=== PATIENT | female | born 1960 | race Caucasian/White ===

== ENCOUNTER → 2018-02-07 11:50 | Outpatient (CLI) | payer OTHER, SELFPAY ==
[2018-02-07 14:40] LABS: Estradiol 33.5 pg/mL
[2018-02-14 11:42] LABS: HPV Reflexed? NOT INDICATED
== END ==
PROVIDERS: Visit Provider Obstetrics & Gynecology
DX: Z12.4 Encounter for screening for malignant neoplasm of cervix (principal); Z79.890 Hormone replacement therapy
CPT/HCPCS: 36415; 82670; 88175; G0145

== ENCOUNTER → 2020-03-11 | Outpatient (CLI) | payer OTHER, SELFPAY ==
--- NOTE | 2020-03-11 07:41 | BI_ITS ---
MAMMOGRAPHY - BILATERAL SCREENING REASON FOR EXAM: Female, 59 years old. Routine annual screening examination. PERTINENT HISTORY: Non-contributory. TECHNIQUE: Digital bilateral breast alexis (3D mammographic acquisition) in the CC and MLO projections. 2-D mediolateral oblique (MLO) and craniocaudad (CC) views of both breasts were obtained. CAD: Full Field Digital Mammography with Computer Added Detection was performed. COMPARISON: Comparison is made with prior examination dated 02/02/2012. FINDINGS: Breast Composition: There are scattered areas of fibroglandular density. There are no dominant masses or suspicious calcifications. No other significant abnormalities are identified. There has been no significant change since the prior study. BI/SCREEN MAMM (CAD) W/ALEXIS BILAT IMPRESSION: Stable bilateral screening mammogram. Yearly follow-up mammogram recommended. (A) ASSESSMENT CATEGORY: BIRADS Category 1: Negative. A letter regarding these results will be sent to the patient by the facility within 30 days. Approximately 10% of breast cancers are not detected by mammography. A normal mammogram should not delay biopsy of a clinically suspicious abnormality. [id number] Electronically Signed: Deric Soliz, at 8:43 EDT , Service support ,
== END | disposition home or self-care (01) ==
PROVIDERS: Referring Provider Obstetrics & Gynecology; Visit Provider Obstetrics & Gynecology
DX: Z12.31 Encounter for screening mammogram for malignant neoplasm of breast (principal)
CPT/HCPCS: 77063; 77067

== ENCOUNTER → 2020-10-09 07:53 | Outpatient (CLI) | payer OTHER, SELFPAY ==
[2020-10-09 10:50] LABS: ALB/GLOB Ratio 0.9 RATIO (0.9-2.4); AST(SGOT) 14 U/L (15-37); Alanine Aminotransfer ALT/SGPT 20 U/L (13-56); Albumin, Serum 3.7 g/dL (3.2-5.0); Alkaline Phosphatase 79 U/L (45-117); Anion Gap 4 (5-15); BUN 10 mg/dL (7-18); BUN/Creat Ratio 13.3 RATIO (10-20); Chloride 107 mmol/L (98-107); Cholesterol 186 mg/dL (200); Creatinine, Serum 0.75 mg/dL (0.55-1.02); EST Glomerular Filtration Rate 83 mL/min (>60); Est Glom Filt Rate - Afr Amer 100 mL/min (>60); Globulin 4.3 g/dL (2.2-4.2); Glucose 77 mg/dL (74-106); High Density Lipoprotein 52 mg/dL; Sodium Level 140 mmol/L (136-145); Triglycerides 94 mg/dL; Very Low Density Lipoprotein 19 mg/dL (5-40)
== END ==
PROVIDERS: PCP Family Medicine; Referring Provider Family Medicine; Visit Provider Family Medicine
DX: Z13.1 Encounter for screening for diabetes mellitus (principal); Z13.220 Encounter for screening for lipoid disorders
CPT/HCPCS: 36415; 80053; 80061

== ENCOUNTER → 2022-03-01 | Outpatient (CLI) | payer OTHER, SELFPAY ==
--- NOTE | 2022-03-01 16:56 | RAD_ITS ---
STUDY: X-RAY - LEFT KNEE REASON FOR EXAM: Female, 61 years old. Posterior left knee pain TECHNIQUE: 4 view(s) of the knee. COMPARISON: None. FINDINGS: Normal visualized distal femur. Normal visualized proximal tibia and fibula. Normal proximal tibiofibular articulation. Normal patella. Moderate degenerative change of the medial compartment of the knee.. Normal lateral femorotibial compartment. Mild degenerative change of the patellofemoral compartment. No knee joint effusion. The soft tissue structures are unremarkable. 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 Electronically Signed: Rupert Murry MD at 2:50 EDT ,
== END | disposition home or self-care (01) ==
PROVIDERS: PCP Family Medicine; Referring Provider Family Medicine; Visit Provider Family Medicine
DX: M25.562 Pain in left knee (principal)
CPT/HCPCS: 73564

== ENCOUNTER → 2025-01-14 | Outpatient (CLI) | payer OTHER, SELFPAY ==
--- NOTE | 2025-01-14 07:04 | BI_ITS ---
EXAM: SCRN MAMM (CAD)W/ALEXIS BILAT DATE: 01/14/2025 CLINICAL HISTORY: F, Age 64 y/o , SCREENING TECHNIQUE: SCRN MAMM (CAD)W/ALEXIS BILAT COMPARISON: Prior exam(s) were compared FINDINGS: TISSUE DENSITY: The breasts are heterogeneously dense, which may obscure small masses. Bilateral Breast Mammographic Findings: No suspicious masses, calcifications or other abnormalities are identified. BI/SCRN MAMM (CAD)W/ALEXIS BILAT IMPRESSION: No mammographic evidence of malignancy in either breast OVERALL FINAL ASSESSMENT BI-RADS 1: NEGATIVE. RECOMMENDATION: Routine annual follow-up in 1 Year A letter with findings and recommendations will be mailed to the patient. Reading Location: [id number]
--- OUTSIDE RECORDS SUMMARY | 2025-01-14 07:05 | XMS RPT_ITS | CCD ---
Author Organization [facility] Inform ion Partnership CONSTRUCTION PROJECT ADMINISTRATOR [facility] Care Team Providers Care Biometrics Head Name Role Phone Unavailable Primary Care Provider Unavailabl e HAZEL GRAY Attending Unavail able Hazel Lui Referring Unavail able Hazel Lui Attending Unavail able Care Physician, No Primary Primary Care Unava ilable Allergies Allergy Classification Reported Allergen(s) Allergy Type Date of Onset Reaction(s) Facility (5 sources) Codeine; Translations: [CODEINE] Drug Allergy 03-16-2007 [facility] Work Phone: Medications Current Medications Medication Drug Class(es) Dates Sig (Normalized) Sig (Original) 168 hr estradiol 0.21271 mg/hr transdermal system (6 sources) Estrogen Start: 06-28-2023 End: 08-29-2025 estradiol (CLIMARA) 0.025 mg/24 hr patch Apply 1 Patch as directed one time a week. 12 Patch 3 08/29/2024 08/29/2025 Active Completed/Discontinued Medications Medication Drug Class(es) Dates Sig (Normalized) Sig (Original) fluorouracil 50 mg/ml topical cream (2 sources) Nucleoside Metabolic Inhibitor Start: 06-14-2007 End: 08-05-2024 FLUOROURACIL 5 % TOPICAL CREAM bid 15 days to cm past lesion area L upper cheek--retain remainder--delay start to 07/03 45 gm 0 06/14/2007 08/05/2024 Discontinued Problems Problem Classification Problem Date Documented Da te Episodic/Chronic Other screening for suspected conditions (not mental disorders or infectious disease) (1 source) Encounter for screening mammogram for malignant neoplasm of breast; Translations: [Encounter for screening mammogram for malignant neoplasm of breast] Onset: 01-10-2025 Episodic Results Test Name Value Interpretation Reference Range Facil ity CNPNon 01-02-2025 CNPN Telephone (OBGYWM) BETTINA SÁNCHEZ ([id number]) 1960 F Date Time Provider Department 01/02/25 HAZEL GRAY OBGYWM During your visit today, we recorded the following information about you: Opal Merchant LPN 01/02/2025 1:31 PM Signed Patient is currently using the Climara patch and called stating that her daughter recently had genetic testing completed that showed 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 Patient asking if ok to continue using the Climara patch. Patient did schedule an appointment to discuss on 01/15/25 if needed. Please advise. Hazel Gray MD 01/03/2025 9:38 AM Signed What is the diagnosis? Typically it is fine- she is using patch which also decreases risk but the amount estrogen is less than what ovaries produced before menopause. Kathy Johnson RN 01/03/2025 10:24 AM Signed Patient notified. It is Factor V Leiden. Does that change anything? Does she need the 01/15 appt with you to discuss? ALMA DELIA Villarreal Deidre, MD 01/03/2025 12:24 PM Signed I am happy to have a discussion with her but she has been on HRT for years- there is a slight increased risk for DVT/clot with women who have Factor V mutation and are on HRT vs women who do not have mutation. Transdermal approach decreases that risk. It is all about risk/benefits. This will be a personal choice for her. Kathy Johnson RN 01/03/2025 12:46 PM Signed Patient notified. She wants to keep appt as schedule to discuss further. Kathy Giauque, RN Allergies As of Date: 01/02/2025 Noted Allergy Reaction CODEINE 03/16/2007 Date Reviewed: 08/05/2024 Reviewed by: Dania Kelly MA - Fully Assessed Reason for Visit: Patient Question [1477] Prescriptions as of 01/03/2025 - estradiol (CLIMARA) 0.025 mg/24 hr patch Apply 1 Patch as directed one time a week. Problem List As Of Date: 01/02/2025 (None) Encounter Status:Closed by KATHY JOHNSON on 01/03/25 Normal [facility] CNOVon 08-05-2024 CNOV Office Visit (OBGYWM ) BETTINA SÁNCHEZ ([id number]) 1960 F Date Time Provider Department 08/05/24 11:20 AM HAZEL GRAY OBGYWM During your visit today, we recorded the following information about you: Blood pressure Weight Height 134/76 83 kg 1.702 m Hazel Gray MD 08/05/2024 12:09 PM Signed [employer] Supervisor offered: Patient declines. Bettina is a 63 year old who presents for an annual gynecologic exam without complaints. Postmenopausal: Yes HRT use: Yes, CLIMARA How long: YEARS. Last pap smear: NORMAL PER PATIENT History of abnormal pap: No Last mammogram: 2022 normal History of abnormal mammogram: No Sexually active: Yes Pain with intercourse: No Postcoital bleeding: No Hot flashes: No Vaginal dryness: No OB History Gravida4 Para4 Term0 Preterm0 AB0 Living4 SAB0 IAB0 Ectopic0 Multiple0 Live Births0 Design Draftsman History LMP: Hysterectomy Age at Menarche: Age at First : Age at Menopause: Design Draftsman History Comments: Sexual Activity: Yes; Male Contraception: No contraception data on record History reviewed. No pertinent past medical history. PAST SURGICAL HISTORY Procedure Laterality Date PAST SURGICAL HISTORY OF 06/26/2006 lymph node infected TOTAL ABDOM HYSTERECTOMY FAMILY HISTORY Problem Relation Age of Onset None Mother Hypertension Father SOCIAL HISTORY Social History Tobacco Use Smoking status: Never Smokeless tobacco: Never Vaping Use Vaping status: Never Used Substance Use Topics Alcohol use: No Drug use: Never REVIEW OF SYSTEMS Abdomen: No abdominal pain, nausea, vomiting, diarrhea, or constipation. No bloating, early satiety, indigestion, or increased flatulence. Bladder: No dysuria, gross hematuria, urinary frequency, urinary urgency, or incontinence Breast: No breast lumps, nipple d/c, overlying skin changes, redness or skin retraction Allergies and current medication updated:Yes SENSITIVE EXAM: The sensitive examination was discussed with the Patient or Patient's Authorized Crime Scene Photographer. As applicable, any other physician, advance practice provider, medical student, or other health professional student that will be observing or involved in the sensitive examination for educational or training purposes was discussed with the Patient or Authorized Crime Scene Photographer. The Patient or Authorized Crime Scene Photographer has agreed to proceed with the sensitive examination. (Sensitive examination includes inspection and/or palpation of the breasts, pelvis, prostate and anorectal regions). EXAM: BP 148/86 Ht 5' 7" (1.70m) Wt 183 lb (83.0kg) BMI 28.66 kg/(m2). GENERAL: pleasant, female in no apparent distress HEENT: Normocephalic, atraumatic, mucus membranes moist, and no lesions NECK: Supple, full range of motion, no adenopathy, and thyroid normal DERMATOLOGY: Normal, without lesions, non-icteric, and non-hirsute BREAST: soft, non-tender, symmetric, no dominant mass, normal nipple-areolar complex, no lymphadenopathy, and no nipple discharge CHEST: Normal inspiratory effort ABDOMEN: soft, non-tender, and no masses PELVIC: external genitalia normal, normal Bartholin's glands, urethra, Kittredge's glands, no vulvar lesions, good vaginal support, physiologic discharge present, normal appearing perineal body and perianal region, cervix surgically absent BIMANUAL: no adnexal masses, non-tender, and uterus surgically absent RECTOVAGINAL: deferred. NEURO: alert and oriented x3,exam grossly non-focal EXTREMITIES: normal ASSESSMENT/PLAN: 1) Health maintenance: Pap/HPV screening no longer needed Mammogram ordered Nutrition, exercise and routine health maintenance exams reviewed. Calcium/Vitamin D supplementation information provided. Colon cancer screening: PT declines colonoscopy and cologuard BMD: pt declines 2) Follow up one year or sooner as needed aHzel Lui MD Allergies As of Date: 08/05/2024 Noted Allergy Reaction CODEINE 03/16/2007 Date Reviewed: 08/05/2024 Reviewed by: Dania Kelly MA - Fully Assessed Reason for Visit: Yearly Exam [187] Primary Visit Diagnosis:Encounter for gynecological examination (general) (routine) without abnormal findings [Z01.419] Prescriptions as of 08/05/2024 - estradiol (CLIMARA) 0.025 mg/24 hr patch Apply 1 Patch as directed one time a week. Problem List As Of Date: 08/05/2024 (None) Medications Discontinued During This Encounter Prescriptions - FLUOROURACIL 5 % TOPICAL CREAM (Discontinued) Reported on 08/05/2024 Disposition: Return in 1 year (on 08/05/2025) for Annual Exam. Follow-up and Disposition History for Encounter Date Provider Department Center 08/05/2024 [id number]-ESDUTCE MCINTOSH,*KARINA Magana Encounter Status:Closed by HAZEL WARD on 08/05/24 Normal [facility] Vital Signs Date Time Vital Sign Value Performing Clinician Faci ayaka 08-05-2024 11:20-0500 Body height 170.2 cm Hazel Ward MD Work Phone: [facility] 08-05-2024 11:20-0500 Body mass index (BMI) [Ratio] 28.66 kg/m2 Hazel Ward MD Work Phone: [facility] 08-05-2024 11:20-0500 Body weight 83.01 kg Hazel Ward MD Work Phone: [facility] 08-05-2024 11:20-0500 Diastolic blood pressure 76 mm[Hg] Hazel Ward MD Work Phone: [facility] 08-05-2024 11:20-0500 Systolic blood pressure 134 mm[Hg] Hazel Ward MD Work Phone: [facility] Encounters Encounter Date Encounter Type Care Provider Facility Start: 01-14-2025 ambulatory Hazel Lui Facility:[facility] Start: 01-02-2025 End: 01-03-2025 Telephone encounter Hazel Ward MD Work Phone: OB/Gynecology Comment on above: Patient Question Start: 08-29-2024 End: 08-29-2024 Refill Hazel Ward MD Work Phone: OB/Gynecology Comment on above: Refill Request Start: 08-05-2024 End: 08-05-2024 ambulatory HAZEL WARD Facility:[facility] Start: 08-05-2024 End: 08-05-2024 Patient encounter procedure Hazel Ward MD Work Phone: OB/Gynecology Comment on above: Encounter for gyneco logical examination (general) (routine) without abnormal findings (Primary Dx) Start: 08-05-2024 End: 08-05-2024 Patient encounter status Hazel Ward MD Work Phone: [facility] Start: 07-05-2024 End: 07-05-2024 Refill Hazel Ward MD Work Phone: OB/Gynecology Comment on above: Refill Request Start: 03-01-2022 End: 03-01-2022 ambulatory [facility] Work Phone: Start: 03-01-2022 End: 03-01-2022 Patient encounter procedure [facility] [place] Procedures Date Procedure Procedure Detail Performing Clinician Start: 03-01-2022 Radiologic examinati on of knee Plan of Treatment Date Care Activity Detail Author Start: 2033 RSV Vaccine (1 - 1-d ose 75+ series) RSV Vaccine (1 - 1-dose 75+ series) [facility] Start: 08-06-2025 End: 08-06-2025 Patient encounter procedure 08/06/2025 1:20 PM EST Office Visit OB/Gynecology [address] [place] [address] Hazel Gray MD [address] [place] [address] Annual OB/Gynecology Comment on above: Annual Start: 02-24-2025 Influenza vaccination Influenza Vacc ine (#1) [facility] Start: 01-15-2025 End: 01-15-2025 Patient encounter procedure 01/15/2025 9:40 AM EDT Office Visit OB/Gynecology [address] [place] [address] Hazel Gray MD [address] [place] [address] discuss medication issue okay per Christy Nurse OB/Gynecology Comment on above: discuss medication i ssue okay per Christy Nurse Start: 08-05-2024 End: 08-05-2024 Patient encounter procedure 08/05/2024 11:20 AM EST Office Visit OB/Gynecology [address] [place] [address] Hazel Gray MD [address] [place] [address] ANNUAL OB/Gynecology Comment on above: ANNUAL Start: 06-26-2024 Advance Directive Discussion Advance Directive Discussion [facility] Start: 02-25-2024 Covid-19 Vaccine ( season) Covid-19 Vaccine ( season) [facility] Start: 02-25-2024 Influenza vaccination Influenza Vacc ine (#1) [facility] Start: 10-17-2023 Screening for osteoporosis Bone Density Screening [facility] Start: 2008 Pneumococcal Vaccine : 50+ (1 of 1 - PCV) Pneumococcal Vaccine: 50+ (1 of 1 - PCV) [facility] Start: 2008 Shingrix Vaccine (1 of 2) Shingrix V accine (1 of 2) [facility] Start: 09-09-2005 Urine microalbumin profile DTaP,Tdap,Td Vaccine (1 - Tdap) [facility] Start: 10-17-2003 Diabetes Screening Diabetes Screenin g [facility] Start: 10-17-2003 Lipid panel Lipid Screening [facility] Start: 10-17-2003 Screening for malign ant neoplasm of colon [facility] Start: 1998 Screening for malign ant neoplasm of breast Mammogram Screening [facility] Start: 1976 Anxiety Screening Anxiety Screening [facility] Start: 1976 Depression Screening Depression Scre ening [facility] Start: 1976 Hepatitis C screening Hepatitis C Sc reening [facility] Start: 1976 HIV screening HIV Screening [facility] Immunizations Immunization Date Immunization Notes Care Provider Woo monteiro 04-14-2014 influenza virus vacc ine, unspecified formulation Hazel Ward MD Work Phone: [facility] Payers Date Payer Category Payer Self-pay [id number] 2019 Private Health Insurance MMO SU[employer] PPO [id number] 2019 Unknown MMO MMO [employer] PPO [id number] 2019-Present [phone] [address] [place] [address] PPO [id number] 2019 Unknown [id number] Unknown [id number] Social History Date Type Detail [facility] Work Phone: Start: 1960 Sex Assigned At Female W [facility] Work Phone: Start: 06-28-2023 [facility] tobacco [facility] Start: 06-28-2023 Tobacco use and exposure Smokeless tobacco non-user [facility] Start: 06-28-2023 End: 08-05-2024 Alcoholic beverage intake Current non-drinker of alcohol (finding) [facility] Start: 06-28-2023 End: 08-05-2024 History of Social function [facility] Start: 06-28-2023 End: 08-05-2024 Tobacco use panel [facility] National Score (1-10 0), lower number is lower risk 76 [facility] Start: 1960 Sex assigned at Not on file [facility] Clinical Notes 07-05-2024 to 01-03-2025 Telephone Encounter - Kathy Johnson RN - 01/03/2025 12:46 PM EDTTelephone Encounter - Kathy Johnson RN - 01/03/2025 12:46 PM EDTTelephone Encounter - Lisbeth Tineo RN - 08/29/2024 11:55 AM EST Note Date & Type Note Facility 01-03-2025 Telephone encounter Note Patient notified. She wants to keep appt as schedule to discuss further. Kathy Johnson RN [facility] 01-03-2025 Miscellaneous Notes Patient notified. She wants to keep appt as schedule to discuss further. Kathy Johnson RN I am happy to have a discussion with her but she has been on HRT for years- there is a slight increased risk for DVT/clot with women who have Factor V mutation and are on HRT vs women who do not have mutation. Transdermal approach decreases that risk. It is all about risk/benefits. This will be a personal choice for her. Patient notified. It is Factor V Leiden. Does that change anything? Does she need the 01/15 appt with you to discuss? Kathy Johnson RN What is the diagnosis? Typically it is fine- she is using patch which also decreases risk but the amount estrogen is less than what ovaries produced before menopause. 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 Patient asking if ok to continue using the Climara patch. Patient did schedule an appointment to discuss on 01/15/25 if needed. Please advise. documented in this encounter [facility] 01-03-2025 Telephone encounter Note I am happy to have a discussion with her but she has been on HRT for years- there is a slight increased risk for DVT/clot with women who have Factor V mutation and are on HRT vs women who do not have mutation. Transdermal approach decreases that risk. It is all about risk/benefits. This will be a personal choice for her. [facility] 01-03-2025 Telephone encounter Note Patient notified. It is Factor V Leiden. Does that change anything? Does she need the 01/15 appt with you to discuss? Kathy Johnson RN [facility] 01-03-2025 Telephone encounter Note What is the diagnosis? Typically it is fine- she is using patch which also decreases risk but the amount estrogen is less than what ovaries produced before menopause. 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 Patient asking if ok to continue using the Climara patch. Patient did schedule an appointment to discuss on 01/15/25 if needed. Please advise. [facility] 08-29-2024 Telephone encounter Note Last OV 08/05/24. Pt states Rx now needs sent to mail order for 90 day supply. Advised DM out this afternoon and returns tomorrow AM. Requested Prescriptions Pending Prescriptions Disp Refills estradiol (CLIMARA) 0.025 mg/24 hr patch 12 Patch 3 Sig: Apply 1 Patch as directed one time a week. Lisbeth Tineo RN [facility] 08-29-2024 Miscellaneous Notes Last OV 08/05/24. Pt states Rx now needs sent to mail order for 90 day supply. Advised DM out this afternoon and returns tomorrow AM. Requested Prescriptions Pending Prescriptions Disp Refills estradiol (CLIMARA) 0.025 mg/24 hr patch 12 Patch 3 Sig: Apply 1 Patch as directed one time a week. Lisbeth Tineo RN documented in this encounter [facility] 08-05-2024 Note HNO ID: [id number] Author: HAZEL GRAY MD Service: ? Author Type: Physician Type: Progress Notes Filed: 08/05/2024 12:09 Note Text: [employer] Supervisor offered: Patient declinesKarolina Doyle is a 63 year old who presents for an annual gynecologic exam without complaints. Postmenopausal: Yes HRT use: Yes, CLIMARA How long: YEARS. Last pap smear: NORMAL PER PATIENT History of abnormal pap: No Last mammogram: 2022 normal History of abnormal mammogram: No Sexually active: Yes Pain with intercourse: No Postcoital bleeding: No Hot flashes: No Vaginal dryness: No OB History Gravida4 Para4 Term0 Preterm0 AB0 Living4 SAB0 IAB0 Ectopic0 Multiple0 Live Births0 Design Draftsman History LMP: Hysterectomy Age at Menarche: Age at First : Age at Menopause: Design Draftsman History Comments: Sexual Activity: Yes; Male Contraception: No contraception data on record History reviewed. No pertinent past medical history. PAST SURGICAL HISTORY Procedure Laterality Date PAST SURGICAL HISTORY OF 06/26/2006 lymph node infected TOTAL ABDOM HYSTERECTOMY FAMILY HISTORY Problem Relation Age of Onset None Mother Hypertension Father SOCIAL HISTORY Social History Tobacco Use Smoking status: Never Smokeless tobacco: Never Vaping Use Vaping status: Never Used Substance Use Topics Alcohol use: No Drug use: Never REVIEW OF SYSTEMS Abdomen: No abdominal pain, nausea, vomiting, diarrhea, or constipation. No bloating, early satiety, indigestion, or increased flatulence. Bladder: No dysuria, gross hematuria, urinary frequency, urinary urgency, or incontinence Breast: No breast lumps, nipple d/c, overlying skin changes, redness or skin retraction Allergies and current medication updated:Yes SENSITIVE EXAM: The sensitive examination was discussed with the Patient or Patient's Authorized Crime Scene Photographer. As applicable, any other physician, advance practice provider, medical student, or other health professional student that will be observing or involved in the sensitive examination for educational or training purposes was discussed with the Patient or Authorized Crime Scene Photographer. The Patient or Authorized Crime Scene Photographer has agreed to proceed with the sensitive examination. (Sensitive examination includes inspection and/or palpation of the breasts, pelvis, prostate and anorectal regions). EXAM: BP 148/86 Ht 5' 7" (1.70m) Wt 183 lb (83.0kg) BMI 28.66 kg/(m2). GENERAL: pleasant, female in no apparent distress HEENT: Normocephalic, atraumatic, mucus membranes moist, and no lesions NECK: Supple, full range of motion, no adenopathy, and thyroid normal DERMATOLOGY: Normal, without lesions, non-icteric, and non-hirsute BREAST: soft, non-tender, symmetric, no dominant mass, normal nipple-areolar complex, no lymphadenopathy, and no nipple discharge CHEST: Normal inspiratory effort ABDOMEN: soft, non-tender, and no masses PELVIC: external genitalia normal, normal Bartholin's glands, urethra, Kittredge's glands, no vulvar lesions, good vaginal support, physiologic discharge present, normal appearing perineal body and perianal region, cervix surgically absent BIMANUAL: no adnexal masses, non-tender, and uterus surgically absent RECTOVAGINAL: deferred. NEURO: alert and oriented x3,exam grossly non-focal EXTREMITIES: normal ASSESSMENT/PLAN: 1) Health maintenance: Pap/HPV screening no longer needed Mammogram ordered Nutrition, exercise and routine health maintenance exams reviewed. Calcium/Vitamin D supplementation information provided. Colon cancer screening: PT declines colonoscopy and cologuard BMD: pt declines 2) Follow up one year or sooner as needed Hazel Lui MD [facility] 08-05-2024 History of Presen t illness Narrative [employer] Supervisor offered: Patient declines. Bettina is a 63 year old who presents for an annual gynecologic exam without complaints. Postmenopausal: Yes HRT use: Yes, CLIMARA How long: YEARS. Last pap smear: NORMAL PER PATIENT History of abnormal pap: No Last mammogram: 2022 normal History of abnormal mammogram: No Sexually active: Yes Pain with intercourse: No Postcoital bleeding: No Hot flashes: No Vaginal dryness: No OB History Gravida4 Para4 Term0 Preterm0 AB0 Living4 SAB0 IAB0 Ectopic0 Multiple0 Live Births0 Design Draftsman History LMP: Hysterectomy Age at Menarche: Age at First : Age at Menopause: Design Draftsman History Comments: Sexual Activity: Yes; Male Contraception: No contraception data on record History reviewed. No pertinent past medical history. PAST SURGICAL HISTORY Procedure Laterality Date PAST SURGICAL HISTORY OF 06/26/2006 lymph node infected TOTAL ABDOM HYSTERECTOMY FAMILY HISTORY Problem Relation Age of Onset None Mother Hypertension Father SOCIAL HISTORY Social History Tobacco Use Smoking status: Never Smokeless tobacco: Never Vaping Use Vaping status: Never Used Substance Use Topics Alcohol use: No Drug use: Never REVIEW OF SYSTEMS Abdomen: No abdominal pain, nausea, vomiting, diarrhea, or constipation. No bloating, early satiety, indigestion, or increased flatulence. Bladder: No dysuria, gross hematuria, urinary frequency, urinary urgency, or incontinence Breast: No breast lumps, nipple d/c, overlying skin changes, redness or skin retraction Allergies and current medication updated:Yes SENSITIVE EXAM: The sensitive examination was discussed with the Patient or Patient's Authorized Crime Scene Photographer. As applicable, any other physician, advance practice provider, medical student, or other health professional student that will be observing or involved in the sensitive examination for educational or training purposes was discussed with the Patient or Authorized Crime Scene Photographer. The Patient or Authorized Crime Scene Photographer has agreed to proceed with the sensitive examination. (Sensitive examination includes inspection and/or palpation of the breasts, pelvis, prostate and anorectal regions). EXAM: BP 148/86 Ht 5' 7" (1.70m) Wt 183 lb (83.0kg) BMI 28.66 kg/(m^2). GENERAL: pleasant, female in no apparent distress HEENT: Normocephalic, atraumatic, mucus membranes moist, and no lesions NECK: Supple, full range of motion, no adenopathy, and thyroid normal DERMATOLOGY: Normal, without lesions, non-icteric, and non-hirsute BREAST: soft, non-tender, symmetric, no dominant mass, normal nipple-areolar complex, no lymphadenopathy, and no nipple discharge CHEST: Normal inspiratory effort ABDOMEN: soft, non-tender, and no masses PELVIC: external genitalia normal, normal Bartholin's glands, urethra, Kittredge's glands, no vulvar lesions, good vaginal support, physiologic discharge present, normal appearing perineal body and perianal region, cervix surgically absent BIMANUAL: no adnexal masses, non-tender, and uterus surgically absent RECTOVAGINAL: deferred. NEURO: alert and oriented x3,exam grossly non-focal EXTREMITIES: normal ASSESSMENT/PLAN: 1) Health maintenance: Pap/HPV screening no longer needed Mammogram ordered Nutrition, exercise and routine health maintenance exams reviewed. Calcium/Vitamin D supplementation information provided. Colon cancer screening: PT declines colonoscopy and cologuard BMD: pt declines 2) Follow up one year or sooner as needed Hazel Lui MD documented in this encounter [facility] 07-05-2024 Telephone encounter Note Last OV 06/28/2023. Pt's appointment was cancelled today and rescheduled for 08/05/24, but currently out of patches and requesting refill. Requested Prescriptions Pending Prescriptions Disp Refills estradiol (CLIMARA) 0.025 mg/24 hr patch 12 Patch 3 Sig: Apply 1 Patch as directed one time a week. Lisbeth Tineo RN [facility] 07-05-2024 Miscellaneous Notes Last OV 06/28/2023. Pt's appointment was cancelled today and rescheduled for 08/05/24, but currently out of patches and requesting refill. Requested Prescriptions Pending Prescriptions Disp Refills estradiol (CLIMARA) 0.025 mg/24 hr patch 12 Patch 3 Sig: Apply 1 Patch as directed one time a week. Lisbeth Tineo RN documented in this encounter [facility] Evaluation note No assessment inform ation available [facility] Work Phone: Evaluation note Diagnosis Encounter for gynecological examination (general) (routine) without abnormal findings- Primary documented in this encounter [facility] Summary Purpose Family History No Family History Records FoundNo Family History Records Found Advance Directives No Advanced Directives Records FoundNo Advanced Directives Records Found Additional Source Comments Goals (unrecognized section and content) Goals may be documented in a n alternate section Source Comments (unrecognize d section and content) In the event this informatio n is protected by the Federal Confidentiality of Alcohol and Drug Abuse Patient Records regulations: The Federal rules restrict any use of the information to criminally investigate or prosecute any alcohol or drug abuse patient.[facility] the event this information is protected by the Federal Confidentiality of Alcohol and Drug Abuse Patient Records regulations: The Federal rules restrict any use of the information to criminally investigate or prosecute any alcohol or drug abuse patient.[facility] the event this information is protected by the Federal Confidentiality of Alcohol and Drug Abuse Patient Records regulations: The Federal rules restrict any use of the information to criminally investigate or prosecute any alcohol or drug abuse patient.[facility] the event this information is protected by the Federal Confidentiality of Alcohol and Drug Abuse Patient Records regulations: The Federal rules restrict any use of the information to criminally investigate or prosecute any alcohol or drug abuse patient.[facility] Reason for Visit (unrecogniz ed section and content) Reason Onset Date Comments Refill Request 07/05/2024 Reason Comments Yearly Exam Reason Onset Date Comments Refill Request 08/29/2024 Reason Comments Patient Question INFORMATION SOURCE (unrecogn ized section and content) DATE CREATED AUTHOR 01/07/2025 [facility] DATE CREATED AUTHOR AUTHOR'S ORGANMUNDO ATION 01/11/2025 [facility] FOR RECORDS PERTAINING TO PATIENTS WHO ARE OR HAVE BEEN ENROLLED IN A CHEMICAL DEPENDENCY/SUBSTANCEABUSE PROGRAM, SOME INFORMATION MAY BE OMITTED. This clinical summary was aggregated from multiple sources. Caution should be exercised in using it in the provision of clinical care. This summary normalizes information from multiple sources, and as a consequence, information in this document may materially change the coding, format and clinical context of patient data. In addition, data may be omitted in some cases. CLINICAL DECISIONS SHOULD BE BASED ON THE PRIMARY CLINICAL RECORDS. [facility] [employer]. provides no warranty or guarantee of the accuracy or completeness of information in this document.
== END | disposition home or self-care (01) ==
LOC: OPBI 07:02
PROVIDERS: PCP Family Medicine; Referring Provider Obstetrics & Gynecology; Visit Provider Obstetrics & Gynecology
DX: Z12.31 Encounter for screening mammogram for malignant neoplasm of breast (principal)
CPT/HCPCS: 77063; 77067

== ENCOUNTER → 2025-02-07 | Outpatient (CLI) | payer OTHER, SELFPAY ==
[2025-02-07 17:42] LABS: Hematocrit 38.5 % (37-47); Hemoglobin 12.3 g/dL (12.0-15.0); Immature Granulocytes Count 0.010 X10^3/uL (0.0-0.0); Mean Corp Hgb Conc 31.9 g/dL (32-36); Mean Corpuscular Volume 92.8 fL (81-99); Mean Platelet Vol. 13.3 fl (6.2-12.0); NRBC Flagged by Analyzer 0 % (0-5); Platelet Count 165 K/mm3 (150-450); RBC Distribution Width CV 12.8 % (11.6-14.6); RBC Distribution Width SD 43.6 fl (35.1-43.9); Red Blood Count 4.15 M/mm3 (4.2-5.4); White Blood Count 6.7 K/mm3 (4.4-11.0)
[2025-02-07 18:16] LABS: AST(SGOT) 21 U/L (<=31); Alanine Aminotransfer ALT/SGPT 14 U/L (<=34); Albumin, Serum 4.3 g/dL (3.4-4.8); Alkaline Phosphatase 89 U/L (35-104); Anion Gap 12 (5-15); BUN 17 mg/dL (4-19); BUN/Creat Ratio 18.4 RATIO (10-20); Calcium,Total 9.8 mg/dL (7.6-11.0); Carbon Dioxide 24.3 mmol/L (21.0-32.0); Chloride 103 mmol/L (98-108); Cholesterol 201 mg/dL (<=200); Globulin 3.6 g/dL (2.2-4.2); Glucose 89 mg/dL (70-99); Low Density Lipoprotein Calc. 129 mg/dL; Potassium 4.2 mmol/L (3.3-5.1); Triglycerides 117 mg/dL; Very Low Density Lipoprotein 23 mg/dL (5-40); Vitamin D,25 Hydroxy 33.9 ng/mL (30-100); cholesterol:hdl ratio screen 4.13
[2025-02-07 18:52] LABS: Prothrombin Time (Protime)PT. 13.8 SECONDS (11.7-14.9)
--- OUTSIDE RECORDS SUMMARY | 2025-02-07 20:08 | XMS RPT_ITS | CCD ---
Author Organization [facility] Care Team Providers Care Gas Engine Operator Name Role Phone Unavailable Primary Care Provider Unavailabl e HAZEL GRAY Attending Unavail able SELF Referring Unavailable HAZEL GRAY Attending Unavail musa Lui MD, Dr. Dc Attending [facility] er Dr. Hazel Lui MD Referring [facility] er Cheri Warren MD Primary Care Provider Hazel Lui Referring Unavail able Hazel Lui Attending Unavail Cheri Sanchez Primary Care Unavailable Allergies Allergy Classification Reported Allergen(s) Allergy Type Date of Onset Reaction(s) Facility (6 sources) Codeine; Translations: [CODEINE] Drug Allergy 03-16-2007 [facility] Work Phone: Medications Current Medications Medication Drug Class(es) Dates Sig (Normalized) Sig (Original) 168 hr estradiol 0.29023 mg/hr transdermal system (7 sources) Estrogen Start: 06-28-2023 End: 08-29-2025 estradiol [...] Discontinued Problems Problem Classification Problem Date Documented Date Episodic/Chronic Menopausal disorders (2 sources) Disorder associated with menstruation AND/OR menopause; Translations: [Unspecified menopausal and perimenopausal disorder] Onset: 01-15-2025 01-15-2025 Chronic Menopausal disorders (2 sources) Drug therapy finding; Translations: [Hormone replacement therapy] Onset: 01-15-2025 01-15-2025 Episodic Other screening for suspected conditions (not mental disorders or infectious disease) (1 source) Encounter for screening mammogram for malignant neoplasm of breast; Translations: [Encounter for screening mammogram for malignant neoplasm of breast] Onset: 01-21-2025 Episodic Results Test Name Value Interpretation Reference Range Facil italvin Clark 01-15-2025 CNOV Office Visit (OBGYWM ) GONZALOBETTINA ([id number]) 1960 F Date Time Provider Department 01/15/25 9:40 AM HAZEL GRAY OBGYWThomas During your visit today, we recorded the following information about you: Blood pressure Weight 118/68 82.1 kg Hazel Gray MD 01/15/2025 10:14 AM Signed Obstetrics and Gynecology Jud WAREHOUSE ORDER SELECTOR Visit Subjective Recording using [employer] software for draft documentation of the visit was discussed with the patient/authorized client account representative; all questions welcomed and answered. Patient/authorized client account representative agreed to proceed CHIEF COMPLAINT: The patient is a 64-year-old female with a possible history of Factor V Leiden presenting for a follow-up visit and questions regaring HRT. HPI: Factor V Leiden - Daughter was recently diagnosed with Factor V Leiden heterozygous after experiencing three miscarriages. - Patient is concerned about her own risk and potential implications for her current hormone replacement therapy (HRT) regimen. - Interested in getting tested for Factor V Leiden to inform future medical decisions, particularly regarding HRT. Hormone Replacement Therapy - Has been on estradiol transdermal patch for 16 years. - Reports significant improvement in quality of life since starting HRT, with no adverse effects. - Concerned about the potential risks of continuing HRT if diagnosed with Factor V Leiden but is hesitant to discontinue due to the benefits she has experienced. HISTORY: OB History Gravida4 Para4 Term0 Preterm0 AB0 Living4 SAB0 IAB0 Ectopic0 Multiple0 Live Births0 Telecommunications Specialist History LMP: Hysterectomy Age at Menarche: Age at First : Age at Menopause: Telecommunications Specialist History Comments: Sexual Activity: Yes; Male Contraception: No contraception data on record No past medical history on file. PAST SURGICAL HISTORY Procedure Laterality Date PAST SURGICAL HISTORY OF 06/26/2006 lymph node infected TOTAL ABDOM HYSTERECTOMY FAMILY HISTORY Problem Relation Age of Onset None Mother Hypertension Father Social History Tobacco Use Smoking status: Never Smokeless tobacco: Never Vaping Use Vaping status: Never Used Substance Use Topics Alcohol use: No Drug use: Never Current Outpatient Medications Medication Sig estradiol (CLIMARA) 0.025 mg/24 hr patch Apply 1 Patch as directed one time a week. No current facility-administered medications for this visit. ALLERGIES Allergen Reactions Codeine REVIEW OF SYSTEMS: Objective SENSITIVE EXAM: Sensitive exam not performed. PHYSICAL EXAM: BP 118/68 Wt 181 lb (82.1kg) GENERAL: No acute distress NEURO: alert and oriented x3 EXTREMITIES: normal Assessment AND Plan ASSESSMENT AND PLAN: 1. 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 Hormone replacement therapy (HRT) (Z79.890) - Patient has been on transdermal estradiol for 16 years without complications. - Discussed potential risks and benefits of continuing HRT, including a slight increased risk of thromboembolic events versus benefits such as improved bone health and reduced risk of colon cancer. - Patient's daughter diagnosed with Factor V Leiden heterozygous; patient inquires about testing for the same. - Advised patient to contact primary care provider at [facility] for Factor V Leiden testing. - Informed patient that continuation of HRT is acceptable even if Factor V Leiden is present, given the long-term use and absence of complications. we discussed this is a perosnal choice and after shared decision making she would liek to remain on HRT. she understands there can be potnetial increased risk for clot while taking HRT. - Patient understands and agrees with the plan to continue HRT. - Follow-up appointment scheduled for June. - if not successful getting appt with pcp for testing will notify office and I can place order for Hematology consultation. I spent a total of 20 minutes on the date of the service which included preparing to see the patient, [id number] patient care, completing clinical documentation, obtaining and/or reviewing separately obtained history, performing a medically appropriate examination, and counseling and educating the patient/family/caregi jerry . Hazel Lui MD Referring Provider: SELF [200] Allergies As of Date: 01/15/2025 Noted Allergy Reaction CODEINE 03/16/2007 Date Reviewed: 01/15/2025 Reviewed by: Dania Kelly MA - Fully Assessed Reason for Visit: Discussion [813] Primary Visit Diagnosis:Menopausal and postmenopausal disorder [N95.9] Other Visit Diagnosis:Hormone replacement therapy (HRT) [Z79.890] Prescriptions as of 01/15/2025 - estradiol (CLIMARA) 0.025 mg/24 hr patch Apply 1 Patch as directed one time a week. Problem List As Of Date: 01/15/2025 (None) (more content not included)... Normal [facility] Breast imaging reportOrdered By: Kimberly Palomares on 01-14-2025 Study report [facility] Imaging Services [address], [place] [address] SCRN MAMM (CAD)W/ALEXIS BILAT MR#: [id number] Acct: [id number] Name: BETTINA SÁNCHEZ Rep #: [id number] : 1960 F 64 From: Nabil Mera MD PCP: Dr. Cheri Warren MD Status: REG CL I Study:SCRN MAMM (CAD)W/ALEXIS BILAT Date of Exa m: 01/14/25 Exam# [id number] Ordering Dr: Hazel Morris MD EXAM: SCRN MAMM (CAD)W/ALEXIS BILAT DATE: 01/14/2025 CLINICAL HISTORY: F, Age 64 y/o , SCREENING TECHNIQUE: SCRN MAMM (CAD)W/ALEXIS BILAT COMPARISON: Prior exam(s) were compared FINDINGS: TISSUE DENSITY: The breasts are heterogeneously dense, which may obscure small masses. Bilateral Breast Mammographic Findings: No suspicious masses, calcifications or other abnormalities are identified. BI/SCRN MAMM (CAD)W/ALEXIS BILAT IMPRESSION: No mammographic evidence of malignancy in either breast OVERALL FINAL ASSESSMENT BI-RADS 1: NEGATIVE. RECOMMENDATION: Routine annual follow-up in 1 Year A letter with findings and recommendations will be mailed to the patient. Reading Location: [id number] CC: Dr Hazel Lui MD; Dr. Cheri Warren MD ~ Fruit Picker: Signed [facility] SCRN MAMM (CAD)W/ALEXIS BILATo n 01-14-2025 SCRN MAMM (CAD)W/ALEXIS BILAT [facility] Imaging Services [address] [place] [id number] SCRN MAMM (CAD)W/ALEXIS BILAT MR#: [id number] Acct: [id number] Name: BETTINA SÁNCHEZ Rep #: [id number] : 1960 F 64 From: Kimberly Su i, MD PCP: Dr. Cheri Warren MD Status: [facility] Study: SCRN MAMM (CAD)W/ALEXIS BILAT Date of Exam: 12/25 08/20 Exam# [id number] Ordering Dr: Ordonez MD EXAM: SCRN MAMM (CAD)W/ALEXIS BILAT DATE: 01/14/2025 CLINICAL HISTORY: F, Age 64 y/o , SCREENING TECHNIQUE: SCRN MAMM (CAD)W/ALEXIS BILAT COMPARISON: Prior exam(s) were compared FINDINGS: TISSUE DENSITY: The breasts are heterogeneously dense, which may obscure small masses. Bilateral Breast Mammographic Findings: No suspicious masses, calcifications or other abnormalities are identified. BI/SCRN MAMM (CAD)W/ALEXIS BILAT IMPRESSION: No mammographic evidence of malignancy in either breast OVERALL FINAL ASSESSMENT BI-RADS 1: NEGATIVE. RECOMMENDATION: Routine annual follow-up in 1 Year A letter with findings and recommendations will be mailed to the patient. Reading Location: [facility] CC: Dr Hazel Lui MD; Dr. Cheri Warren MD Fruit Picker: Signed [facility] 01-02-2025 CNPN Telephone (OBGYWM) BETTINA SÁNCHEZ ([id number]) 1960 F Date Time Provider Department 01/02/25 [...] schedule to discuss further. Kathy Johnson RN Allergies As of Date: 01/02/2025 Noted Allergy Reaction CODEINE 03/16/2007 Date Reviewed: 08/05/2024 Reviewed by: Dania Kelly MA - Fully Assessed Reason for Visit: Patient Question [1477] Prescriptions as of 01/03/2025 - estradiol (CLIMARA) 0.025 mg/24 hr patch Apply 1 Patch as directed one time a week. Problem List As Of Date: 01/02/2025 (None) Encounter Status:Closed by KATHY JOHNSON on 01/03/25 Normal [facility] CNOVon 08-05-2024 CNOV Office Visit (OBGYWM ) BETTINA SÁNCHEZ ([id number]) 1960 F Date Time Provider Department 08/05/24 11:20 AM HAZEL GRAY OBGYWM During your visit today, we recorded the following information about you: Blood pressure Weight Height 134/76 83 kg 1.702 m Hazel Gray MD 08/05/2024 12:09 PM Signed Granite Installer offered: Patient declinesKarolina Doyle is a 63 [...] Living4 SAB0 IAB0 Ectopic0 Multiple0 Live Births0 Telecommunications Specialist History LMP: Hysterectomy Age at Menarche: Age at First : Age at Menopause: Telecommunications Specialist History Comments: Sexual Activity: Yes; Male Contraception: [...] discussed with the Patient or Patient's Authorized Construction Management Instructor. As applicable, any other physician, advance practice provider, medical student, or other health professional student that will be observing or involved in the sensitive examination for educational or training purposes was discussed with the Patient or Authorized Construction Management Instructor. The Patient or Authorized Construction Management Instructor has agreed to proceed with the sensitive examination. (Sensitive examination includes inspection and/or palpation of the breasts, pelvis, prostate and anorectal regions). EXAM: BP 148/86 Ht 5' 7 (1.70m) Wt 183 lb (83.0kg) BMI 28.66 [...] external genitalia normal, normal Bartholin's glands, urethra, Alcester's glands, no vulvar lesions, good vaginal support, [...] or sooner as needed Hazel Lui MD Allergies As of Date: 08/05/2024 [...] for Encounter Date Provider Department Center 08/05/2024 [id number] MCINTOSH,*KARINA Magana Encounter Status:Closed by HAZEL WARD on 08/05/24 Normal [facility] Vital Signs Date Time Vital Sign Value Performing Clinician Faci lity 01-15-2025 09:46-0400 Body mass index (BMI) [Ratio] 28.35 kg/m2 Hazel Ward MD Work Phone: [facility] 01-15-2025 09:46-0400 Body weight 82.1 kg Hazel Ward MD Work Phone: [facility] 01-15-2025 09:46-0400 Diastolic blood pressure 68 mm[Hg] Hazel Ward MD Work Phone: [facility] 01-15-2025 09:46-0400 Systolic blood pressure 118 mm[Hg] Hazel Ward MD Work Phone: [facility] 08-05-2024 11:20-0500 Body height 170.2 cm Hazel Ward MD Work Phone: [facility] 08-05-2024 11:20-0500 Body mass index (BMI) [Ratio] 28.66 kg/m2 Hazel Ward MD Work Phone: [facility] 08-05-2024 11:20-0500 Body weight 83.01 kg Hazel Ward MD Work Phone: [facility] 08-05-2024 11:20-0500 Diastolic blood pressure 76 mm[Hg] Hazel Ward MD Work Phone: [facility] 08-05-2024 11:20-0500 Systolic blood pressure 134 mm[Hg] Hazel Ward MD Work Phone: [facility] Encounters Encounter Date Encounter Type Care Provider Facility Start: 01-15-2025 End: 01-15-2025 Patient encounter procedure Hazel Ward MD Work Phone: OB/Gynecology Comment on above: Menopausal and postm enopausal disorder (Primary Dx); Hormone replacement therapy (HRT) Start: 01-15-2025 End: 01-15-2025 ambulatory SELF Facility:[facility] Start: 01-14-2025 End: 01-14-[address] Hazel Lui MD Work Phone: -Outpatient Breast Imaging Start: 01-14-2025 End: 01-14-[address] Hazel Lui MD -Outpatient Breast Imaging Work Phone: Start: 01-14-2025 End: 01-14-2025 ambulatory Hazel Lui Facility:[facility] Start: 01-02-2025 End: 01-03-2025 Telephone encounter Hazel Ward MD Work Phone: OB/Gynecology Comment on above: Patient Question Start: 08-29-2024 End: 08-29-2024 Refill Hazel Ward MD Work Phone: OB/Gynecology Comment on above: Refill Request Start: 08-05-2024 End: 08-05-2024 ambulatory HAZEL WARD Facility:[facility] Start: 08-05-2024 End: 08-05-2024 Patient encounter procedure Hazel Ward MD Work Phone: OB/Gynecology Comment on above: Encounter for gyneco logical examination (general) (routine) without abnormal findings (Primary Dx) Start: 08-05-2024 End: 08-05-2024 Patient encounter status Hazel Ward MD Work Phone: [facility] Start: 07-05-2024 End: 07-05-2024 Refill Hazel Ward MD Work Phone: OB/Gynecology Comment on above: Refill Request Start: 03-01-2022 End: 03-01-[address] [facility] Work Phone: Start: 03-01-2022 End: 03-01-[address] [facility] Procedures Date Procedure Procedure Detail Performing Clinician Start: 01-14-2025 Screening mammography D rKarolina Lui MD Work Phone: Start: 03-01-2022 Radiologic examinati on of knee Plan of Treatment Date Care Activity Detail Author Start: 2033 RSV Vaccine (1 - 1-d ose 75+ series) RSV Vaccine (1 - 1-dose 75+ series) [facility] Start: 08-06-2025 End: 08-06-2025 Patient encounter procedure 08/06/2025 1:20 PM EST Office Visit OB/Gynecology [address] [place] [address] Hazel Gray MD [address] [address] Annual OB/Gynecology Comment on above: Annual Start: 02-24-2025 Influenza vaccination Influenza Vacc ine (#1) [facility] Start: 01-15-2025 End: 01-15-2025 Patient encounter procedure 01/15/2025 9:40 AM EDT Office Visit OB/Gynecology [address] [place] [address] Hazel Gray MD [address] [place] [id number] discuss medication issue okay per Christy Nurse OB/Gynecology Comment on above: discuss medication i ssue okay per Christy Nurse Start: 08-05-2024 End: 08-05-2024 Patient encounter procedure 08/05/2024 11:20 AM EST Office Visit OB/Gynecology [address] [place] [address] Hazel Gray MD [address] [place] [address] ANNUAL OB/Gynecology Comment on above: ANNUAL Start: 06-26-2024 Advance Directive Discussion Advance Directive Discussion [facility] Start: 02-25-2024 Covid-19 Vaccine ( season) Covid-19 Vaccine ( season) [facility] Start: 02-25-2024 Influenza vaccination Influenza Vacc ine (#1) [facility] Start: 10-17-2023 Screening for osteoporosis Bone Density Screening [facility] Start: 2008 Pneumococcal Vaccine : 50+ (1 of 1 - PCV) Pneumococcal Vaccine: 50+ (1 of 1 - PCV) [facility] Start: 2008 Shingrix Vaccine (1 of 2) Shingrix V accine (1 of 2) [facility] Start: 09-09-2005 Urine microalbumin profile DTaP,Tdap,Td Vaccine (1 - Tdap) [facility] Start: 10-17-2003 Diabetes Screening Diabetes Screenin g [facility] Start: 10-17-2003 Lipid panel Lipid Screening [facility] Start: 10-17-2003 Screening for malign ant neoplasm of colon [facility] Start: 1998 Screening for malign ant neoplasm of breast Mammogram Screening [facility] Start: 1976 Anxiety Screening Anxiety Screening [facility] Start: 1976 Depression Screening Depression Scre ening [facility] Start: 1976 Hepatitis C screening Hepatitis C Sc reening [facility] Start: 1976 HIV screening HIV Screening [facility] Immunizations Immunization Date Immunization Notes Care Provider Fa thania 04-14-2014 influenza virus vacc ine, unspecified formulation Hazel Ward MD Work Phone: [facility] Payers Date Payer Category Payer Self-pay [id number] 2019 Private Health Insurance MMO [employer] PPO [id number] 2019 Unknown MMO MMO [employer] PPO [id number] 2019-Present [phone] [address] [place] [address] PPO [id number] 2019 Unknown [id number] Unknown [id number] Social History Date Type Detail [facility] Work Phone: Start: 1960 Sex Assigned At Female [facility] Start: 06-28-2023 [facility] tobacco [facility] Start: 06-28-2023 Tobacco use and exposure Smokeless tobacco non-user [facility] Start: 06-28-2023 End: 08-05-2024 Alcoholic beverage intake Current non-drinker of alcohol (finding) [facility] Start: 06-28-2023 End: 08-05-2024 History of Social function [facility] Start: 06-28-2023 End: 08-05-2024 Tobacco use panel [facility] National Score (1-10 0), lower number is lower risk 76 [facility] Start: 1960 Sex assigned at Not on file [facility] Tobacco smoking stat [facility] Unknown if ever smoked [facility] Work Phone: Clinical Notes 07-05-2024 to 01-15-2025 Hazel Gray MD - 01/15/2025 10:10 AM EDTTelephone Encounter - Kathy Johnson RN - 01/03/2025 12:46 PM EDTTelephone Encounter - Kathy Johnson RN - 01/03/2025 12:46 PM EDT Note Date & Type Note Facility 01-15-2025 Note HNO ID: [id number] Author: HAZEL GRAY MD Service: ? Author Type: Physician Type: Progress Notes Filed: 01/15/2025 10:14 Note Text: Obstetrics and Gynecology Jud WAREHOUSE ORDER SELECTOR Visit Subjective Recording using [employer] software for draft documentation of the visit was discussed with the patient/authorized client account representative; all questions welcomed and answered. Patient/authorized client account representative agreed to proceed CHIEF COMPLAINT: The patient is a 64-year-old female with a possible history of Factor V Leiden presenting for a follow-up visit and questions regaring HRT. HPI: Factor V Leiden - Daughter was recently diagnosed with Factor V Leiden heterozygous after experiencing three miscarriages. - Patient is concerned about her own risk and potential implications for her current hormone replacement therapy (HRT) regimen. - Interested in getting tested for Factor V Leiden to inform future medical decisions, particularly regarding HRT. Hormone Replacement Therapy - Has been on estradiol transdermal patch for 16 years. - Reports significant improvement in quality of life since starting HRT, with no adverse effects. - Concerned about the potential risks of continuing HRT if diagnosed with Factor V Leiden but is hesitant to discontinue due to the benefits she has experienced. HISTORY: OB History Gravida4 Para4 Term0 Preterm0 AB0 Living4 SAB0 IAB0 Ectopic0 Multiple0 Live Births0 Telecommunications Specialist History LMP: Hysterectomy Age at Menarche: Age at First : Age at Menopause: Telecommunications Specialist History Comments: Sexual Activity: Yes; Male Contraception: No contraception data on record No past medical history on file. PAST SURGICAL HISTORY Procedure Laterality Date PAST SURGICAL HISTORY OF 06/26/2006 lymph node infected TOTAL ABDOM HYSTERECTOMY FAMILY HISTORY Problem Relation Age of Onset None Mother Hypertension Father Social History Tobacco Use Smoking status: Never Smokeless tobacco: Never Vaping Use Vaping status: Never Used Substance Use Topics Alcohol use: No Drug use: Never Current Outpatient Medications Medication Sig estradiol (CLIMARA) 0.025 mg/24 hr patch Apply 1 Patch as directed one time a week. No current facility-administered medications for this visit. ALLERGIES Allergen Reactions Codeine REVIEW OF SYSTEMS: Objective SENSITIVE EXAM: Sensitive exam not performed. PHYSICAL EXAM: BP 118/68 Wt 181 lb (82.1kg) GENERAL: No acute distress NEURO: alert and oriented x3 EXTREMITIES: normal Assessment AND Plan ASSESSMENT AND PLAN: 1. 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 Hormone replacement therapy (HRT) (Z79.890) - Patient has been on transdermal estradiol for 16 years without complications. - Discussed potential risks and benefits of continuing HRT, including a slight increased risk of thromboembolic events versus benefits such as improved bone health and reduced risk of colon cancer. - Patient's daughter diagnosed with Factor V Leiden heterozygous; patient inquires about testing for the same. - Advised patient to contact primary care provider at [facility] for Factor V Leiden testing. - Informed patient that continuation of HRT is acceptable even if Factor V Leiden is present, given the long-term use and absence of complications. we discussed this is a perosnal choice and after shared decision making she would liek to remain on HRT. she understands there can be potnetial increased risk for clot while taking HRT. - Patient understands and agrees with the plan to continue HRT. - Follow-up appointment scheduled for June. - if not successful getting appt with pcp for testing will notify office and I can place order for Hematology consultation. I spent a total of 20 minutes on the date of the service which included preparing to see the patient, [id number] patient care, completing clinical documentation, obtaining and/or reviewing separately obtained history, performing a medically appropriate examination, and counseling and educating the patient/family/caregiver . Hazel Lui MD [facility] 01-15-2025 History of Presen t illness Narrative Images from the original note were not included. Obstetrics and Gynecology Jud WAREHOUSE ORDER SELECTOR Visit Subjective Recording using [employer] software for draft documentation of the visit was discussed with the patient/authorized client account representative; all questions welcomed and answered. Patient/authorized client account representative agreed to proceed CHIEF COMPLAINT: The patient is a 64-year-old female with a possible history of Factor V Leiden presenting for a follow-up visit and questions regaring HRT. HPI: Factor V Leiden - Daughter was recently diagnosed with Factor V Leiden heterozygous after experiencing three miscarriages. - Patient is concerned about her own risk and potential implications for her current hormone replacement therapy (HRT) regimen. - Interested in getting tested for Factor V Leiden to inform future medical decisions, particularly regarding HRT. Hormone Replacement Therapy - Has been on estradiol transdermal patch for 16 years. - Reports significant improvement in quality of life since starting HRT, with no adverse effects. - Concerned about the potential risks of continuing HRT if diagnosed with Factor V Leiden but is hesitant to discontinue due to the benefits she has experienced. HISTORY: OB History Gravida4 Para4 Term0 Preterm0 AB0 Living4 SAB0 IAB0 Ectopic0 Multiple0 Live Births0 Telecommunications Specialist History LMP: Hysterectomy Age at Menarche: Age at First : Age at Menopause: Telecommunications Specialist History Comments: Sexual Activity: Yes; Male Contraception: No contraception data on record No past medical history on file. PAST SURGICAL HISTORY Procedure Laterality Date PAST SURGICAL HISTORY OF 06/26/2006 lymph node infected TOTAL ABDOM HYSTERECTOMY FAMILY HISTORY Problem Relation Age of Onset None Mother Hypertension Father Social History Tobacco Use Smoking status: Never Smokeless tobacco: Never Vaping Use Vaping status: Never Used Substance Use Topics Alcohol use: No Drug use: Never Current Outpatient Medications Medication Sig estradiol (CLIMARA) 0.025 mg/24 hr patch Apply 1 Patch as directed one time a week. No current facility-administered medications for this visit. ALLERGIES Allergen Reactions Codeine REVIEW OF SYSTEMS: Objective SENSITIVE EXAM: Sensitive exam not performed. PHYSICAL EXAM: BP 118/68 Wt 181 lb (82.1kg) GENERAL: No acute distress NEURO: alert and oriented x3 EXTREMITIES: normal Assessment & Plan ASSESSMENT AND PLAN: 1. 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 Hormone replacement therapy (HRT) (Z79.890) - Patient has been on transdermal estradiol for 16 years without complications. - Discussed potential risks and benefits of continuing HRT, including a slight increased risk of thromboembolic events versus benefits such as improved bone health and reduced risk of colon cancer. - Patient's daughter diagnosed with Factor V Leiden heterozygous; patient inquires about testing for the same. - Advised patient to contact primary care provider at [facility] for Factor V Leiden testing. - Informed patient that continuation of HRT is acceptable even if Factor V Leiden is present, given the long-term use and absence of complications. we discussed this is a perosnal choice and after shared decision making she would liek to remain on HRT. she understands there can be potnetial increased risk for clot while taking HRT. - Patient understands and agrees with the plan to continue HRT. - Follow-up appointment scheduled for June. - if not successful getting appt with pcp for testing will notify office and I can place order for Hematology consultation. I spent a total of 20 minutes on the date of the service which included preparing to see the patient, [id number] patient care, completing clinical documentation, obtaining and/or reviewing separately obtained history, performing a medically appropriate examination, and counseling and educating the patient/family/caregiver . Hazel Lui MD documented in this encounter [facility] 01-03-2025 Telephone encounter Note Patient notified. She wants to keep appt as schedule to discuss further. Kathy Johnson RN [facility] 01-03-2025 Miscellaneous Notes Patient notified. She wants [...] needed. Please advise. documented in this encounter [facility] 01-03-2025 Telephone encounter Note I am happy [...] will be a personal choice for her. [facility] 01-03-2025 Telephone encounter Note Patient notified. It is Factor V Leiden. Does that change anything? Does she need the 01/15 appt with you to discuss? Kathy Johnson RN [facility] 01-03-2025 Telephone encounter Note What is the diagnosis? Typically it is fine- she is using patch which also decreases risk but the amount estrogen is less than what ovaries produced before menopause. [facility] 01-02-2025 Telephone encounter Note Patient is currently using the Climara patch and called stating that her daughter recently had genetic testing completed that showed 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 Patient asking if ok to continue using the Climara patch. Patient did schedule an appointment to discuss on 01/15/25 if needed. Please advise. [facility] 08-29-2024 Telephone encounter Note Last OV 08/05/24. Pt states Rx now needs sent to mail order for 90 day supply. Advised DM out this afternoon and returns tomorrow AM. Requested Prescriptions Pending Prescriptions Disp Refills estradiol (CLIMARA) 0.025 mg/24 hr patch 12 Patch 3 Sig: Apply 1 Patch as directed one time a week. Lisbeth Tineo RN [facility] 08-29-2024 Miscellaneous Notes Last OV 08/05/24. Pt states Rx now needs sent to mail order for 90 day supply. Advised DM out this afternoon and returns tomorrow AM. Requested Prescriptions Pending Prescriptions Disp Refills estradiol (CLIMARA) 0.025 mg/24 hr patch 12 Patch 3 Sig: Apply 1 Patch as directed one time a week. Lisbeth Tineo RN documented in this encounter [facility] 08-05-2024 Note HNO ID: [id number] Author: HAZEL GRAY MD Service: ? Author Type: Physician Type: Progress Notes Filed: 08/05/2024 12:09 Note Text: Granite Installer offered: Patient declines. Bettina is a 63 [...] Living4 SAB0 IAB0 Ectopic0 Multiple0 Live Births0 Telecommunications Specialist History LMP: Hysterectomy Age at Menarche: Age at First : Age at Menopause: Telecommunications Specialist History Comments: Sexual Activity: Yes; Male Contraception: [...] discussed with the Patient or Patient's Authorized Construction Management Instructor. As applicable, any other physician, advance practice provider, medical student, or other health professional student that will be observing or involved in the sensitive examination for educational or training purposes was discussed with the Patient or Authorized Construction Management Instructor. The Patient or Authorized Construction Management Instructor has agreed to proceed with the sensitive examination. (Sensitive examination includes inspection and/or palpation of the breasts, pelvis, prostate and anorectal regions). EXAM: BP 148/86 Ht 5' 7 (1.70m) Wt 183 lb (83.0kg) BMI 28.66 [...] external genitalia normal, normal Bartholin's glands, urethra, Alcester's glands, no vulvar lesions, good vaginal support, [...] or sooner as needed Hazel Lui MD [facility] 08-05-2024 History of Presen t illness Narrative Granite Installer offered: Patient declines. Bettina is a 63 year old who presents for an annual gynecologic exam without complaints. Postmenopausal: Yes HRT use: Yes, CLIMARA How long: YEARS. Last pap smear: NORMAL PER PATIENT History of abnormal pap: No Last mammogram: 2023 normal History of abnormal mammogram: No Sexually active: Yes Pain with intercourse: No Postcoital bleeding: No Hot flashes: No Vaginal dryness: No OB History Gravida4 Para4 Term0 Preterm0 AB0 Living4 SAB0 IAB0 Ectopic0 Multiple0 Live Births0 Telecommunications Specialist History LMP: Hysterectomy Age at Menarche: Age at First : Age at Menopause: Telecommunications Specialist History Comments: Sexual Activity: Yes; Male Contraception: [...] discussed with the Patient or Patient's Authorized Construction Management Instructor. As applicable, any other physician, advance practice provider, medical student, or other health professional student that will be observing or involved in the sensitive examination for educational or training purposes was discussed with the Patient or Authorized Construction Management Instructor. The Patient or Authorized Construction Management Instructor has agreed to proceed with the sensitive examination. (Sensitive examination includes inspection and/or palpation of the breasts, pelvis, prostate and anorectal regions). EXAM: BP 148/86 Ht 5' 7 (1.70m) Wt 183 lb (83.0kg) BMI 28.66 [...] external genitalia normal, normal Bartholin's glands, urethra, Alcester's glands, no vulvar lesions, good vaginal support, [...] Hazel Lui MD documented in this encounter [facility] 07-05-2024 Telephone encounter Note Last OV 06/28/2023. Pt's appointment was cancelled today and rescheduled for 08/05/24, but currently out of patches and requesting refill. Requested Prescriptions Pending Prescriptions Disp Refills estradiol (CLIMARA) 0.025 mg/24 hr patch 12 Patch 3 Sig: Apply 1 Patch as directed one time a week. Lisbeth Tineo RN [facility] 07-05-2024 Miscellaneous Notes Last OV 06/28/2023. Pt's appointment was cancelled today and rescheduled for 08/05/24, but currently out of patches and requesting refill. Requested Prescriptions Pending Prescriptions Disp Refills estradiol (CLIMARA) 0.025 mg/24 hr patch 12 Patch 3 Sig: Apply 1 Patch as directed one time a week. Lisbeth Tineo RN documented in this encounter [facility] Evaluation note No assessment inform ation available [facility] Work Phone: Evaluation note Diagnosis Encounter for gynecological examination (general) (routine) without abnormal findings- Primary [facility] Diagnosis Menopausal and postmenopausal disorder- Primary Unspecified menopausal and postmenopausal disorder Hormone replacement therapy (HRT) Need for prophylactic hormone replacement therapy (postmenopausal) [facility] (narrative)No reason for referral information availableWOhioHealth Doctors [facility] Work Phone: Summary Purpose Family History No Family History Records FoundNo Family History Records Found Advance Directives No Advanced Directives Records FoundNo Advanced Directives Records Found Chief Complaint and Reason for Visit Chief Complaint Admit Date SCREENING January 14, 2025 7:01 am Additional Source Comments Goals (unrecognized section and content) Goals may be documented in a n alternate sectionGoals may be documented in an alternate section Source Comments (unrecognize d section and content) In the event this informatio n is protected by the Federal Confidentiality of Alcohol and Drug Abuse Patient Records regulations: The Federal rules restrict any use of the information to criminally investigate or prosecute any alcohol or drug abuse patient.[facility] Foundation[facility] the event this information is protected by the Federal Confidentiality of Alcohol and Drug Abuse Patient Records regulations: The Federal rules restrict any use of the information to criminally investigate or prosecute any alcohol or drug abuse patient.[facility] FoundationIn the event this information is protected by the Federal Confidentiality of Alcohol and Drug Abuse Patient Records regulations: The Federal rules restrict any use of the information to criminally investigate or prosecute any alcohol or drug abuse patient.[facility] FoundationIn the event this information is protected by the Federal Confidentiality of Alcohol and Drug Abuse Patient Records regulations: The Federal rules restrict any use of the information to criminally investigate or prosecute any alcohol or drug abuse patient.[facility] Foundation[facility] the event this information is protected by the Federal Confidentiality of Alcohol and Drug Abuse Patient Records regulations: The Federal rules restrict any use of the information to criminally investigate or prosecute any alcohol or drug abuse patient.[facility] Reason for Visit (unrecogniz ed section and content) Reason Onset Date Comments Refill Request 07/05/2024 Reason Comments Yearly Exam Reason Onset Date Comments Refill Request 08/29/2024 Reason Comments Patient Question Reason Comments Discussion INFORMATION SOURCE (unrecogn ized section and content) DATE CREATED AUTHOR 01/16/2025 [facility] DATE CREATED AUTHOR AUTHOR'S ORGANIZ ATION 01/23/2025 [facility] Care Teams (unrecognized sec tion and content) Team Status: Active Member Role/Relationship Status Dates Cheri Warren MD Primary Care Provider Active Team Status: Inactive Member Role/Relationship Status Dates Dr. Hazel Lui MD Attending Provider Braden youngblood Start: January 14, 2025 End: January 14, 2025 Dr. Hazel Lui MD Referring Provider Ac rylie Start: January 14, 2025 End: January 14, 2025 Cheri Warren MD Primary Care Provider Active St art: January 14, 2025 End: January 14, 2025 FOR RECORDS PERTAINING TO PATIENTS WHO ARE [...] BE BASED ON THE PRIMARY CLINICAL RECORDS. [facility] [facility] provides no warranty or guarantee of the accuracy or completeness of information in this document.
[2025-02-11 20:08] LABS: VWD Studies Interp Report Note (.)
== END | disposition home or self-care (01) ==
PROVIDERS: PCP Family Medicine; Visit Provider Family Medicine
DX: R79.1 Abnormal coagulation profile (principal); R53.83 Other fatigue; Z13.220 Encounter for screening for lipoid disorders; Z13.1 Encounter for screening for diabetes mellitus
CPT/HCPCS: 36415; 80053; 80061; 82306; 83036; 84443; 85025; 85240; 85245; 85246; 85610; 85670